=== PATIENT | female | born 1990 | race Two or more races ===

== ENCOUNTER 2018-01-20 19:49 | Emergency (ER) | payer MEDICAID, OTHER ==
[~2018-01-20] VITALS: Ht 157.5 cm; Wt 65.8 kg
[2018-01-20 22:05] VITALS: BP 122/77
== END 2018-01-20 23:59 | disposition home or self-care (01) ==
LOC: ER 19:55
DX: R51 Headache (principal); Z87.828 Personal history of other (healed) physical injury and trauma
CPT/HCPCS: 70450; 81002